=== PATIENT | female | born 1995 | race Hispanic/Latino ===

== ENCOUNTER 2021-01-03 20:31 | Emergency (ER) | payer SELFPAY ==
[~2021-01-03] VITALS: Ht 167.6 cm; Wt 122.5 kg
[2021-01-03] MEDS ORDERED: DEXAMETHASONE SOD PHOS 10 MG/1 ML VIAL IM ONE (23:00)
[2021-01-04 00:56] VITALS: BP 121/81
== END 2021-01-04 01:00 | disposition home or self-care (01) ==
LOC: ER 22:50
DX: U07.1 COVID-19 (principal)
CPT/HCPCS: 99282; J1100; U0002

== ENCOUNTER 2024-05-19 16:00 | Emergency (ER) | payer SELFPAY ==
[~2024-05-19] VITALS: Ht 167.6 cm; Wt 120.7 kg
[2024-05-19 16:20] VITALS: TEMP 98.7
[2024-05-19] MEDS: BENZONATATE 100 MG CAP PO STA (16:43)
[2024-05-19 16:45] VITALS: PULSE 82; RESP 16; O2SAT 98
[2024-05-19 17:10] LABS: CORONAVIRUS COVID-19 AG NEGATIVE (NEGATIVE); INFLUENZA A AG NEGATIVE (NEGATIVE); INFLUENZA B AG NEGATIVE (NEGATIVE)
== END 2024-05-19 17:42 | disposition home or self-care (01) ==
LOC: ER 16:28
DX: R05.9 Cough, unspecified (principal); J06.9 Acute upper respiratory infection, unspecified; H92.03 Otalgia, bilateral; Z11.52 Encounter for screening for COVID-19
CPT/HCPCS: 99283